=== PATIENT | male | born 1990 | race Caucasian/White ===

== ENCOUNTER 2021-03-06 11:12 | Emergency (ER) | payer SELFPAY ==
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
[2021-03-06 15:10] VITALS: BP 136/92; TEMP 97.4; O2SAT 100
== END 2021-03-06 15:01 | disposition left against medical advice (07) ==
LOC: ER 11:12
DX: Z53.21 Procedure and treatment not carried out due to patient leaving prior to being seen by health care provider (principal)
CPT/HCPCS: 99281